=== PATIENT | female | born 1985 | race Caucasian/White ===

== ENCOUNTER → 2019-05-18 | Outpatient (CLI) | payer OTHER ==
[~2019-05-18] MED LIST: ACET500; AMOX500 PO; AZIT250 PO; Acidophilus La100 GM PO; Amiodarone HCl200 MG PO; Amoxicilli250 MG/5 M PO; BISA10S PR; CEPH500 PO; COLCHICINE0.6 MG PO; COMPAZINE10 MG PO; DIPATR PO; DOCU100 PO; FAMO20 PO; FURO20 PO; FURO40 PO; GABA100 PO; HYDACE5 PO; HYDCOR10 PO; HYDR1TAB94 PO; IBUP200 PO; IBUP800; IBUPROFEN; INSDET100 SC; Imitrex25 MG PO; K-Dur 20 meq T20 MEQ PO; LISI5 PO; LORA1 PO; LORA10 PO; MAGOXI400 PO; MEDR150I; METO25ER PO; METO5A PO; MIRT15 PO; MULVITMINE PO; MUPI2TC TOP; NEOPOLHCSU OT; NITR100CA PO; ONDA4ODT PO; OXYACE5T PO; PCN; PENVK250 PO; PROACE100 PO; PROC10 PO; PROM25 PO; RXNEOPOLHC AD; RXPENVK250 PO; SERT100 PO; SERT25 PO; SULTRIDS PO; SUMA25 PO; TOLT2ER; TOPI100 PO; TOPI50 PO; TRAM50 PO; TROSPIUM CHLORI60 MG PO; Toviaz4 MG PO; ZOHYDRO ER10 M1 PO; Zofran Odt4 MG PO; Zofran8 MG PO; [UNRECOGNIZED DRUG - OTHER]
[2019-05-18 07:15] LABS: Source, Urine Catheter
[2019-05-18 07:20] LABS: Appearance, Urine Hazy (Clear); Bilirubin, Urine Neg (Neg); Blood, Urine 1+ (Neg); Color, Urine Yellow (P-Yellow); Glucose Qualitative, Urine 4+ (Neg); Ketones, Urine Neg (Neg); Leukocyte Esterase, Urine 3+ (Neg); Nitrite, Urine Pos (Neg); Protein, Urine 2+ (Neg); Urobilinogen, Urine NORM (Normal)
[2019-05-18 07:36] LABS: Bacteria Mod /hpf; Red Blood Cells, Urine 0-2 /hpf (0-2); Squamous Epithelial Cells Not Seen /hpf (Few); White Blood Cells, Urine 50-100 /hpf (0-5)
== END | disposition home or self-care (01) ==
LOC: LAB RH 07:13 → EDSTATUS 13:55
DX: N39.0 Urinary tract infection, site not specified (principal)
CPT/HCPCS: 81001; 87077; 87086; 87186

== ENCOUNTER 2019-06-05 12:13 | Emergency (ER) | payer OTHER ==
[~2019-06-05] VITALS: Ht 162.6 cm; Wt 68.0 kg
[~2019-06-05 12:13] MED LIST changes: -Amoxicilli250 MG/5 M PO
[2019-06-05 15:15] LABS: Calcium, Ionized (POC) 1.05 mmol/L (1.10-1.46); Chloride (POC) 105 mmol/L (98-108); Creatinine (POC) <0.2 mg/dL (0.6-1.0); Glucose (ISTAT POC) 142 mg/dL (70-99); Hemoglobin (POC) 9.5 g/dL (12.0-16.0); Sodium (POC) 142 mmol/L (135-148); Total CO2 (POC) 25 mmol/L (21-32)
[2019-06-05 15:16] LABS: Source, Urine Catheter
--- NOTE | 2019-06-05 15:23 | NUR ---
Initial Visit: ED Palliative Care Consult for Goals of Care. Spoke with Dr Oliveira and discussed case. Pt reportedly revoked hospice and wanted to come to the hospital. Pt is resting on gurney upon arrival. She C/O pain all over. Speech is difficult to understand but eventually was able to establish her goals of care. Pt reports that she wants to be on hospice just does not want to live at [facility]. She reports that she wants to live in a facility in [place] where she is closer to family. After discussing concerns with Caremanager Aniket, Aniket reports she will place call with Pt's APD worker of Pt's wishes in order to start process. Pt is agreeable with going back to [facility] with [facility] with goal to eventually transfer to a facility in [place]. Called and spoke with Pt's grandfather Jean Carlos and discussed concerns. Jean Carlos reports Joycelyn (Pt) becomes frustrated with her facility nurse when morphine is offered. Pt does not care for how morphine makes her feel and prefers dilaudid. Called and spoke with Shanon from [facility]. Shanon reports Pt had a panic attack and decided to revoke hospice. Shanon reports [facility] can admit Pt back onto services as early as today or tomorrow at the latest. Expressed Pt's concern regarding morphine. Shanon reports Pt has a new prescription for dilaudid available for her now. Called and spoke with facility nurse Briana and reported plan for Pt to discharge from ED back to [facility] with [facility]. Reported Pt's concerns regarding morphine. Listened as Briana expressed concerns for when Pt develops difficulty swallowing and the use of dilaudid vs liquid morphine. Suggested that the dilaudid can be crushed and mixed with a few drops of water to aid in swallow. No other concerns reported at this time. Spoke with Dr Oliveira and discussed Pt's wishes. Plan for Pt to discharge back to [facility] with [facility]. Spoke with bedside nurse Thao and discussed plan. Palliative Care will remain available.
[2019-06-05 15:24] LABS: Blood, Urine 2+ (Neg); Glucose Qualitative, Urine Neg (Neg); Ketones, Urine 4+ (Neg); Leukocyte Esterase, Urine 3+ (Neg); Nitrite, Urine Neg (Neg); Protein, Urine 2+ (Neg); Urobilinogen, Urine 2+ (Normal)
[2019-06-05 15:26] LABS: Bilirubin, Urine 1+ (Neg)
[2019-06-05 15:27] LABS: Appearance, Urine Cloudy (Clear); Color, Urine Yellow (P-Yellow)
[2019-06-05 15:35] LABS: White Blood Cells, Urine 25-50 /hpf (0-5)
[2019-06-05 15:36] LABS: Bacteria Many /hpf; Mucus Mod (0-Heavy); Squamous Epithelial Cells Few /hpf (Few); Triple Phosphate Crystals Rare /hpf
[2019-06-05] MEDS ORDERED: Amoxicilli250 MG/5 M PO (16:11)
== END 2019-06-05 17:37 | disposition home or self-care (01) ==
LOC: ER 12:13
PROVIDERS: Emergency Medicine
DX: N39.0 Urinary tract infection, site not specified (principal); G11.1 Early-onset cerebellar ataxia; E87.6 Hypokalemia; I50.9 Heart failure, unspecified; G47.30 Sleep apnea, unspecified; Z88.8 Allergy status to other drugs, medicaments and biological substances; Z91.018 Allergy to other foods; Z79.899 Other long term (current) drug therapy; Z79.4 Long term (current) use of insulin
CPT/HCPCS: 36415; 51701; 71045; 80047; 81001; 85014; 87077; 87086; 87186; 99285-25

== ENCOUNTER 2019-08-21 16:30 | Emergency (ER) | payer OTHER ==
[~2019-08-21] VITALS: Ht 165.1 cm; Wt 65.8 kg
[~2019-08-21 16:30] MED LIST changes: +Amoxicilli250 MG/5 M PO; +Mirtazapine7.5 MG PO
[2019-08-21] MEDS ORDERED: FLUC100 PO (17:15)
[2019-08-21] MEDS ORDERED: ESCI20 PO (17:15)
[2019-08-21] MEDS ORDERED: OMEPRAZOLE MAGN20 M1 PO (17:18)
[2019-08-21] MEDS ORDERED: HYDMOR8 PO (17:19)
== END 2019-08-21 21:25 | disposition home or self-care (01) ==
LOC: ER 16:30
DX: G71.00 Muscular dystrophy, unspecified (principal); E86.0 Dehydration; I50.9 Heart failure, unspecified; M41.9 Scoliosis, unspecified; G47.30 Sleep apnea, unspecified; Z88.6 Allergy status to analgesic agent; Z91.018 Allergy to other foods; Z88.8 Allergy status to other drugs, medicaments and biological substances; Z79.899 Other long term (current) drug therapy
CPT/HCPCS: 96361; 96374; 99283-25; J1170; J7030

== ENCOUNTER 2019-08-24 22:12 | Observation (INO) | payer OTHER ==
[~2019-08-24] VITALS: Ht 170.2 cm; Wt 53.4 kg
[~2019-08-24 22:12] MED LIST changes: +ESCI20 PO; +FLUC100 PO; +HYDMOR8 PO; +OMEPRAZOLE MAGN20 M1 PO
[2019-08-24 22:55] LABS: BASOPHILS ABSOLUTE AUTO 0.03 K/mm3 (0.00-0.23); BASOPHILS PERCENT AUTO 1 % (0-2); EOSINOPHILS ABSOLUTE AUTO 0.07 K/mm3 (0.00-0.68); EOSINOPHILS PERCENT AUTO 1 % (0-6); Hemoglobin 13.7 g/dL (11.5-16.0); IMMATURE GRAN ABSOLUTE AUTO 0.03 K/mm3 (0.00-0.10); IMMATURE GRAN PERCENT AUTO 1 % (0-1); LYMPHOCYTES PERCENT AUTO 33 % (21-46); MONOCYTES ABSOLUTE AUTO 0.44 K/mm3 (0.16-1.47); MONOCYTES PERCENT AUTO 7 % (4-13); Mean Corpuscular HGB 26.9 pg (26.0-34.0); Mean Corpuscular HGB Conc 31.9 g/dL (31.5-36.5); Mean Corpuscular Volume 84 fL (80-100); Mean Platelet Volume 10.9 fL (9.1-12.4); NEUTROPHILS ABSOLUTE AUTO 3.74 K/mm3 (1.96-9.15); NEUTROPHILS PERCENT AUTO 58 % (41-73); Platelet Count 212 K/mm3 (150-400); RDW Coefficient Variation 15.9 % (11.7-14.2); RDW Standard Deviation 49.3 fL (35.1-46.3); White Blood Cell Count 6.41 K/mm3 (4.00-11.30)
[2019-08-24 23:14] LABS: Alanine Aminotransfer (ALT/SGP 10 U/L (12-78); Albumin, Blood 3.6 g/dL (3.4-5.0); Albumin/Globulin Ratio 0.8 (0.8-1.8); Alk Phos 76 U/L (50-136); Anion Gap 14 mmol/L (6-16); Aspartate Aminotrans (AST/SGOT 12 U/L (12-37); Bilirubin, Total 0.6 mg/dL (0.1-1.0); Blood Urea Nitrogen 6 mg/dL (8-24); Bun/Creatinine Ratio 24.8 (12.0-20.0); CO2, Blood 21 mmol/L (21-32); Calcium, Blood 9.3 mg/dL (8.5-10.1); Chloride, Blood 105 mmol/L (98-108); Creatinine, Blood 0.24 mg/dL (0.40-1.00); Globulin, Blood 4.4 g/dL (2.2-4.0); Glomerular Filtration Rate >60 (60-); Glucose, Blood 187 mg/dL (70-99); Sodium, Blood 140 mmol/L (136-145)
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
[2019-08-25] MEDS ORDERED: Pedi-Dri 100,0060 GM TOP (04:38)
[2019-08-25] MEDS ORDERED: FLUC100 PO (04:39)
[2019-08-25] MEDS ORDERED: Fleet Enema132 ML PR (04:40)
[2019-08-25] MEDS ORDERED: GABA300 PO ×2 (04:41)
[2019-08-25] MEDS ORDERED: MIRALAX17 GM PO (04:41)
[2019-08-25] MEDS ORDERED: SENN187 PO (04:43)
[2019-08-25] MEDS ORDERED: ACET325 PR (04:44)
[2019-08-25] MEDS ORDERED: Fiorinal Capsu1 EACH PO (04:45)
[2019-08-25] MEDS ORDERED: BISA10S PR (04:46)
[2019-08-25] MEDS ORDERED: DURAGESIC1 EACH TD (04:47)
[2019-08-25] MEDS ORDERED: Fentanyl1 EACH TOP (04:48)
[2019-08-25] MEDS ORDERED: HYOS.125 PO (04:49)
[2019-08-25] MEDS ORDERED: LORA2L PO (04:51)
[2019-08-25] MEDS ORDERED: MORP20L PO (04:55)
[2019-08-25] MEDS ORDERED: ONDA4ODT MM (04:56)
[2019-08-25] MEDS ORDERED: PROM25S PR (04:57)
--- NOTE | 2019-08-25 05:54 | NUR ---
PT RESTING QUIETLY AFTER RECEIVING MEDS PER EMAR. PT REFUSES ORAL MEDS. SAYS SHE CANT DRINK. SHE CHOKES. ASSESSMENTS COMPLETED. BED LOW AND LOCKED AND SOFT-TOUCH BUTTON PLACED WITH PATIENT
--- NOTE | 2019-08-25 07:15 | NUR ---
ASSUMED CARE OF PT- BEDSIDE REPORT COMPLETED WITH NIGHT RN WAYNE. PER REPORT FROM WAYNE AND THE PT SHE IS UNABLE TO SWALLOW WATER SO SHE CAN NOT TAKE ANY ORAL MEDICATIONS. PER REPORT PT NPO PENDING SWALLOW EVAL. WILL SPEAK TO PALLIATIVE CARE TODAY. PT SLEEPING AT CHANGE OF SHIFT. PT MEDICATED FOR PAIN AND ANXIETY BY THE NIGHT RN. NO CURRENT S&S OF PAIN. WILL CTM.
[2019-08-25 08:46] LABS: Anion Gap 12 mmol/L (6-16); Blood Urea Nitrogen 6 mg/dL (8-24); Bun/Creatinine Ratio 24.6 (12.0-20.0); CO2, Blood 23 mmol/L (21-32); Calcium, Blood 9.6 mg/dL (8.5-10.1); Chloride, Blood 107 mmol/L (98-108); Creatinine, Blood 0.24 mg/dL (0.40-1.00); Glomerular Filtration Rate >60 (60-); Glucose, Blood 152 mg/dL (70-99); Potassium, Blood 3.3 mmol/L (3.5-5.5); Sodium, Blood 142 mmol/L (136-145)
--- NOTE | 2019-08-25 11:00 | NUR ---
PT GAVE VERBAL PERMISSION FOR STAFF TO SPEAK TO HER GRANDFATHER NAME ADDED TO THE VERBAL RELEASE OF INFORMATION SHEET PER HER REQUEST.
--- NOTE | 2019-08-25 17:41 | NUR ---
Pt known to this sheet writer from past admissions. Review of pt history and needs with care manger. theraputic time with patient and review of her meds. pt has strong anexiety and frustration with communcation. pt neck tight and pt nods yes to have contractions of her arms and muscle tightness. Pt was a halfway in [place] the had a communication tablet for her. pt has great social stress with her family and child. Will have susan see her for theraputic tiem will review pt with Gordon guthrie.
--- NOTE | 2019-08-25 20:03 | NUR ---
SHIFT SUMMARY- PT HAS REQUESTED PAIN MEDICATION T/O THE DAY WHEN STAFF WAKE HER TO SPEAK TO HER, BUT THE PT IS RESTING COMFORTABLY WHEN NURSING STAFF GO TO SPEAK TO HER ABOUT PAIN MEDICINE. PT WAS MEDICATED WHEN SHE WAS AWAKE, FOR PAIN. PT AYAZ OUT AND MOANS BUT WHEN ASKED TO RATE HER PAIN SHE STATES ITS A 2/10. PERFORMED FULL ROM EXERCISES WITH THE PT TWICE DURRING THE SHIFT. MEDICATED FOR PAIN AND ANXIETY PER EMAR. PALLIATIVE CARE CAME TO SEE THE PT AND SPOKE TO RN ABOUT REQUESTING A SWALLOW EVAL FROM THE
--- NOTE | 2019-08-26 02:40 | NUR ---
ASSUMED CARE OF PT *LATE ENTRY* TOOK OVER CARE OF THIS PT @2342, RECIEVED REPORT FROM RADHA Cole RN. PT WAS RESTING COMFORTABLY @TIME I TOOK OVER CARE. AROUND 0100 PT WAS MOANING OUTLOUD & VERY RESTLESS, WHEN ASKED IF IN PAIN SHE NODDED HEAD UP & DOWN FOR YES. NOTICED HER CURRENT IV WAS REMOVED. RAVEN BRODERICK RN PLACED NEW IV IN R. HAND. CALL LIGHT IN REACH. [facility].
--- NOTE | 2019-08-26 06:39 | NUR ---
SHIFT SUMMARY PT IS MOSTLY NONVERBAL, DOES MOAN, GROAN & NOD HEAD TO SOME QUESTIONS. MANY NON-VERBAL SIGNS OF PAIN/DISCOMFORT FLACC SCALE 5 MULTIPLE TIMES & WAS MEDICATED W/DILAUDID & ATIVAN PER ORDERS WHICH DECREASED FLACC SCALE TO 0. HR WAS TACHY THIS AM @144 WHEN AIR POLLUTION COMPLIANCE INSPECTOR TOOK VITALS, GAVE ATIVAN SINCE PT WAS RESTLESS, KICKING LEGS, MOANING & GRIMACING, WHEN HR RECHEKED MANUALLY IT WAS 110 BPM. REPOSITIONED PRN TO PREVENT SKIN BREAKDOWN. ORAL CARE PROVIDED. NPO UNTIL SPEECH EVAL PERFORMED. ON 1L O2 VIA NC. CALL LIGHT IN REACH. WCTM.
--- NOTE | 2019-08-26 16:57 | NUR ---
Inital spiritual care note: Joycelyn was restless. She was impossible to understand verbally. I stood at bedside providing calm presence, stroked her forehead, and spoke soothing words of love and encouragement. This appeared to calm her considerably. Her eyes closed and she rested. I will remain available.
--- NOTE | 2019-08-26 18:46 | NUR ---
PT SLEPT T/O THE SHIFT WITH SHORT PERIODS OF WAKEFULNESS, MEDICATED FOR PAIN PER EMAR WITH IV DILAUDID THIS MORNING. SL ROXINAL THIS AFTERNOON. DISCHARGE ORDERS FOR RETURN TO SNF, HELD, SEE AGRICULTURAL PRODUCE PACKER NOTE. PT CODE STATUS CHANGED TO COMFORT CARE THIS AFTERNOON. SEE CHART FOR ORDERS. DISCHARGE TO BE REEVALUATED IN THE AM. WILL CONTINUE TO MONITOR AND REPORT TO ONCOMING RN
--- NOTE | 2019-08-26 23:42 | NUR ---
COMFORT CARE PT MOANING, TEARFUL, GRIMACING. NODS HEAD "YES" WHEN ASKED IN PAIN. MEDICATED W/ROXANOL PER ORDERS. MUBBLES "HOT" REMOVED BLANKETS. WCTM. CALL LIGHT IN REACH.
--- NOTE | 2019-08-27 01:33 | NUR ---
COMFORT CARE PT MOANING, TEARFUL. NODS HEAD "YES" WHEN ASKED IF UNCOMFORTABLE. REPOSITIONED, CHANGED ATTENDS, SUCTION PROVIDED W/ORAL CARE, CLEANED HAIR. STATES "WANNA " & STARTS CRYING, ATIVAN GIVEN PER ORDERS. WCTM. CALL LIGHT IN REACH.
--- NOTE | 2019-08-27 02:15 | NUR ---
COMFORT CARE SUMMARY ASSUMED CARE OF PT AT 1900. PT IS LYING IN BED. OPENS EYES TO VERBAL STIMULUS, MOANS, PT CAN STATE ONE WORD SENTENCES AT TIMES. PT MEDICATED FOR PAIN PER EMAR.
--- NOTE | 2019-08-27 05:22 | NUR ---
COMFORT CARE ASSESSMENT PT IS CURRENTY SLEEPING.RESPIRATIONS STABLE.
--- NOTE | 2019-08-27 05:23 | NUR ---
COMFORT CARE ASSESSMENT PT IS MOANING AND CRYING, PT MEDICATED PER EMAR, PT STATED EARLIER THAT SHE WISHED THAT SHE COULD . PT REFUSED MORNING MEDICATIONS.
--- NOTE | 2019-08-27 06:11 | NUR ---
END SHIFT SUMMARY PT MOANED T/O THE NIGHT. PT WAS MEDICATED WITH DILAUDID AND ROXINAL T/O. PT STATED IN THE NIGHT THAT SHE WANTED TO , CHARGE NURSE NOTIFIED, SPIRITUAL CARE CONSULTED. PT IS CURRENTLY SLEEPING, CALL LIGHT IN REACH, BED IN LOWEST POSTION, WILL CONTINUE TO MONITOR UNTIL DAYSHIFT NURSE ARRIVES.
--- NOTE | 2019-08-27 13:42 | NUR ---
DOCTOR NOTIFIED PT HAS N&V, EMSIS X2. CALLED DR LAURENT AND RECIEVED NEW ORDER FOR IV ZOFRAN Q4HRS AND PHENERGAN 25MG RECTAL PRN.
--- NOTE | 2019-08-27 14:48 | NUR ---
PT MEDICATED PT MEDICATED FOR NAUSEA, EMSIS x1 AFTER SPEECH PATHOLOGY GAVE FLUIDS. BED BATH PERFORMED AND LINEN CHANGED, ORAL CARE PERFOEMED. METHALEX APPLIED PREVENTATIVE. REPOSITIONED ON LEFT SIDE.
--- NOTE | 2019-08-27 14:53 | NUR ---
PROVIDER UPDATE DR. LAURENT UPDATED ABOUT EMSIS x2. NEW ORDERS OR ZOFARN Q4PRN AND RECTAL PHERGAN 25MG [id number]. LINEN CHANGED AND BED BATH PERFORMED.
--- NOTE | 2019-08-27 15:02 | NUR ---
MEDICATED MEDICATED WITH RECTAL PHENERGAN FOR NAUSEA, REPOSITONED TO RIGHT SIDE. ATTENDS CHANGED.
--- NOTE | 2019-08-27 16:01 | NUR ---
Review of pt with complex care nurse and bedside staff and medications that work for patient. pt has complex social situation. review of possible hospice locations. pt more frail having more contartctures at times less verbal.
--- NOTE | 2019-08-27 17:17 | NUR ---
SHIFT SUMMARY PT HAS HAD NO ACUTE CHANGES THIS SHIFT. PT HAS BEEN VERY VERBAL THIS SHIFT CRYING OUT. PT HAS HAS EMSIS X2 AND MEDICATED. PT HAS BEEN MEDICATED X3 FOR PAIN. PT HAS TOLORATED MINIMAL ORAL FLUIDS THIS SHIFT. PT HAS A METHALEX BANDAGE ON COCCYX A PREVENTATIVE. PT HAS SOFT TOUCH CALL LIGHT WITH IN REACH AND DOOR AND PRIVACY CURTIAN OPEN FOR SAFETY. DELANO LEZAMA STAFF CAME TO VISIT PT ABOUT HER RETURN TO FACILITY AND SHE SHOOK HER HEAD NO. WILL COUNTINUE TO MONITOR AND REPORT TO ONCOMING NOC RN.
--- NOTE | 2019-08-27 18:12 | NUR ---
Routine spiritual care note: Joycelyn was tearful/moaning. She stared at me when I asked her about telling RN she wanted to . Maybe a bit confused today? She was trying to say something and became tearful/frustrated when I could not understand. I calmly assured her that she was safe and cared for here. I asked her about her dtr--did she want me to contact her? She shook head 'no'. But it was unclear to me she really understood anything I said to her. Her answers were inconsistent. The only thing that appeared to calm her was stroking her forehead. With this, she would close her eyes and appear to relax. I will continue to see Joycelyn as case-load permits.
--- NOTE | 2019-08-28 05:16 | NUR ---
SHIFT SUMMARY: ALERT AND RESPONSIVE. PAINFUL AND NAUSEAUS WHILE AWAKE. PT BEGAN DRY HEAVING WITH MOVEMENT PRIOR TO ADMINISTRATION OF ZOFRAN. HAS SLEPT HEAVILY THROUGH MUCH OF THE NIGHT EXCEPT TURNS AND CHANGES. LIGHT TOUCH CALL BUTTON IN PLACE. PT HAS NOT USED IT HOWEVER. PT'S SPEECH IS DIFFICULT TO UNDERSTAND. STAFF ATTEMPT TO ANTICIPATE NEEDS AND COMPLETE FREQUENT CHECKS. NO ACUTE CHANGES OVER NIGHT.
--- NOTE | 2019-08-28 10:05 | NUR ---
PT RESTING QUIETLY
--- NOTE | 2019-08-28 10:07 | NUR ---
INSPECTOR OPEN DIE HERE ASKING PT, WHERE SHE WANTED TO BE PLACED, UNABLE TO UNDERSTAND PT CLEARLY.
--- NOTE | 2019-08-28 13:02 | NUR ---
PT RESTING QUIETLY
--- NOTE | 2019-08-28 13:03 | NUR ---
PT REFUSING CARE STATING "LEAVE ME ALONE", MEDICATED FOR PAIN, REPOSITIONED, ATTENDS CHANGED.
--- NOTE | 2019-08-28 13:05 | NUR ---
PT RESTING QUIETLY
--- NOTE | 2019-08-28 18:49 | NUR ---
LINDA CARE PERFORMED, REPOSITIONED AND ORAL CARE PERFORMED.
--- NOTE | 2019-08-28 19:15 | NUR ---
review of pt with [facility] staff and care coordinators. revew of patient needs.
--- NOTE | 2019-08-28 19:18 | NUR ---
SHIFT SUMMARY PT HAS NO THIS SHIFT, PT WAS MEDICATED X1 FOR PAIN DURING THE SHIFT. PT HAS YELLD OUT MULITPLE TIMES THIS SHIFT "LEAVE ME ALONE", REFUSED OTHER MEDS AND ORAL FLUIDS. TALKED WITH GRANDPA AND HE WILL BE IN [place]OM[place] FROM [place]. SOFT TOUCH CALL LIGHT WITH IN REACH, WILL COUNTINUE TO MONITOR THE REMAINDER THE SHIFT.
--- NOTE | 2019-08-28 22:36 | NUR ---
BEGINNING SHIFT SUMMARY ASSUMED CARE OF PT AT 2137. PT A/O X4, AND IS A GOOD HISTORIAN. PT STATES SHE DOES NOT TAKE ANY MEDICATIONS AT HOME. PT IS FROM [place] AND RECENTLY MOVED TO [place] TO BE WITH HER SISTER, THE PT WENT BACK TO [place] TO MEET HER OTHER SISTER AT THE HOSPITAL THERE WHEN SHE FELL DUE TO LEFT SIDED WEAKNESS, PT STATED THAT SHE HAS HAD A CVA IN THE PAST BUT CANT REMEBER WHEN, THE PT DID NOT WANT TO STAY AT THE HOSPITAL THAT HER SISTER WAS IN SO SHE CAME TO [place], WHERE HER SISTER USED TO LIVE TO COME TO [facility], THE PT PLANS TO LEAVE BACK TO [place] AFTER DISCHARGE. PT HAS LEFT SIDED WEAKNESS, AND NUMBNESS IN HER L THUMB AND POINTER FINGER. PT TRANSFERS WITH SBA. HEART SOUNDS REGULAR, FINE CRACKLES AT THE BASES OF LUNGS. PT DENIES SOB/CP/DYSPNEA. PT IS CURRENTLY SLEEPING, CALL LIGHT IN REACH, BED IN LOWEST POSTION, WILL CONTINUE TO MONITOR.
--- NOTE | 2019-08-28 22:56 | NUR ---
BEGINNING SHIFT SUMMARY ASSUMED CARE OF PT A 1899. PT WAS LYING IN BED LOOKING OUT THE WINDOW. PT STATED THAT SHE WANTED ME TO LEAVE HER ALONE. PT DENIES PAIN AND REFUSED ALL MEDICATIONS BY MOUTH. PT HAS BEEN SLEEPING UNTIL 2229 WHEN SHE ASKED FOR SOME SODA, PT IS UPSET ABOUT HAVING TO DRINK THICKEND SODA. PT IS REFUSING ORAL CARE AFTER DRINKING SODA AND IS CRYING OUT, WHEN ASKED IF PT NEEDED SOMETHING FOR PAIN THE PT REFUSES. CALL LIGHT IN REACH, BED IN LOWEST POSTION, WILL CONTINUE TO MONITOR.
--- NOTE | 2019-08-28 23:51 | NUR ---
COMFORT CARE ASSESSMENT PT STATED THAT SHE WANTED TO BE LEFT ALONE.
--- NOTE | 2019-08-28 23:52 | NUR ---
COMFORT CARE ASSESSMENT PT IS AGITATED BUT REFUSING ALL MEDICATIONS AND CARE. PT REPOSTIONED AND ATTENDS CHECKED.
--- NOTE | 2019-08-28 23:54 | NUR ---
COMFORT CARE ASSESSMENT PT STATED TO LINEN ROOM ATTENDANT THAT SHE IS IN PAIN, WHEN ABOUT TO GIVE ROXINOL PT STATED THAT SHE DIDNT WANT IT AND SHE WANTED DILAUDID IN HER ARM. EXPLAINED TO PT THAT WHEN SHE LEAVES SHE WONT HAVE AN IV AND SHE CANT GET THAT DRUG. PT STILL REFUSED PAIN MEDICATION. PT ASKED TO BE LEFT ALONE.
--- NOTE | 2019-08-29 01:39 | NUR ---
COMFORT CARE ASSESSMENT PT CONTNIUES TO MOAN. WHEN ASKED IF PT WILL TAKE ROXINOL FOR PAIN, PT REFUSES, PT REPOSITIONED AND ATTENDS CHANGED. CALL LIGHT IN REACH, BED IN LOWEST POSITION, WILL CONTINUE TO MONITOR.
--- NOTE | 2019-08-29 04:24 | NUR ---
COMFORT CARE ASSESSMENT WENT TO CHECK ON PT, PT HAD VOMITED ON SELF. BED CHANGED, PT GIVEN SPONGE BATH, ORAL CARE AND LINDA CARE. PT TOOK PAIN MEDICATION. PT ASKING FOR COLD WATER, PT IS NOT SATICFIED WITH PUDDING THICK WATER. PT IS CURRENTLY RESTING, CALL LIGHT IN REACH, BED IN LOWEST POSTION, WILL CONTINUE TO MONITOR.
--- NOTE | 2019-08-29 04:34 | NUR ---
END SHIFT SUMMARY PT CONTINUED TO CALL OUT T/O THE NIGHT. PT THREW UP ONCE, BED CHANGED AND SPONGE BATH GIVEN. PT AGREED TO PAIN MEDICATION. PT WANTS TO DRINK COLD WATER, PT EDUCATED ABOUT WHY SHE CAN'T AND IS UPSET. HEAD OF THE BED ELEVATED, CALL LIGHT IN REACH, BED IN LOWEST POSITION, WILL CONTINUE TO MONITOR UNTIL DAYSHIFT NURSE ARRIVES.
--- NOTE | 2019-08-29 05:40 | NUR ---
COMFORT CARE ASSESSMENT PT CALLED OUT BECAUSE SHE WANTED HER HEAD LOWERED, PT STATED THAT SHE WAS IN 10/10 PAIN [address] IN HER BODY. MEDICATED PER EMAR AND REPOSITIONED. CALL LIGHT IN REACH, BED IN LOWEST POSTION, WILL CONTNIUE TO MONITOR.
--- NOTE | 2019-08-29 09:03 | NUR ---
PATIENT SLEEPING W/O S/SX DISCOMFORT AT THIS TIME. WILL DO PERSONAL CARE WHEN AWAKE.
--- NOTE | 2019-08-29 10:10 | NUR ---
PATIENT STATES SHE HURTS 'EVERYWHERE.' REFUSED ROXANOL DESPITE MUCH DISCUSSION WITH THIS RN. PATIENT ASKING FOR 'DILAUDID.' RECORDINGS LIBRARIAN NOTIFIED.
--- NOTE | 2019-08-29 12:06 | NUR ---
PATIENT SLEEPING AT THIS TIME W/O S/SX OF DISCOMFORT.
--- NOTE | 2019-08-29 13:00 | NUR ---
Requested by Aniket SHAH RN to be present with meeting between CM and pt's grandfather, Jean Carlos. Aniket and Jean Carlos were meeting in hallway outside of pt's room when this casualty underwriter arrived. Jean Carlos stated to Aniket that he has been in contact with [facility] in the [place] (where pt has been a resident of in the past) and that they may have a bed available for Joycelyn. Jean Carlos also reports that he recently signed papers at hospice that he thought were for him to be able to make medical decisions for Joycelyn. Aniket states she will contact [facility] to check on the status of any paperwork they may have. Jean Carlos also states that Joycelyn doesn't like to take the morphine as "It makes her fuzzy and she usually refuses it." Jean Carlos states Joycelyn was taking dilaudid and a fentanyl patch at [facility] which was working for her pain. Reviewed MAR from [facility] and pt was taking dilaudid 8 mg PO q4h prn pain and fentanyl patch 125 mcg q [address]. [address] Luis re: pain medications that pt was taking while on hospice at [facility] to see if those should be ordered while she is on comfort care here. PC to follow for symptom management.
--- NOTE | 2019-08-29 17:33 | NUR ---
SHIFT SUMMARY NO ACUTE CHANGES TODAY. SHE HAD A FEW EPISODES OF EMESIS REQUIRING A BATH AND FULL BED CHANGE. MEDICATED WITH ZOFRAN. SHE COMPLAINED OF PAIN ALL OVER WHEN I ASSUMED CARE OF PATIENT BUT HAD BEEM REFUSING ALL PAIN MEDS PREVIOUSLY ORDERED. PAIN MEDS CHANGED TO ORAL DILAUDID PER PT REQUEST AND HER FENTANYL PATCH DOSE INCREASED TO HER DOSE SHE WAS ON AT [facility], 125 MCG. SHE HAS BEEN SLEEPING AND RESTING COMFORTABLE SINCE ABOUT 1600. NO FURTHER EPISODES OF N/V AND NO C/O PAIN AT THIS TIME. ETHICS CONSULT ORDERED AND SS WORKING ON SAFE DISCHARGE PLANNING AND PLACEMENT.
--- NOTE | 2019-08-30 01:33 | NUR ---
COMFORT CARE PATIENT RESTING. NO S/SX OF PAIN. FENTANYL PATCH [address] CHANGED AND REPOSITIONED FOR COMFORT. WILL CONTINUE TO MONITOR.
--- NOTE | 2019-08-30 05:00 | NUR ---
SHIFT SUMMARY COMFORT CARE PATIENT HAD NO ACUTE CHANGES. NO S/SX OF PAIN, N/V OR SOB. FENTANYL PATCH [address] SLEEP/RESTING MOST OF THE SHIFT. TURNED AND CHANGED T/O SHIFT. ORAL CARE PROVIDED. PATIENT SPEECH DIFFICULT TO UNDERSTAND, MOANING. HX MS. TOUCH PAD CALL LIGHT IN REACH. BED IN LOWEST POSITION. WILL CONTINUE TO MONITOR UNTIL DAY SHIFT NURSE ASSUMES CARE.
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
--- NOTE | 2019-08-30 18:19 | NUR ---
SHIFT SUMMARY PT RESTED QUIETLY MOST OF THE DAY. DID NOT MOAN IN PAIN TODAY OR VERBALIZE ANY PAIN. PT DID MAKE NOISE A COUPLE OF TIMES WHEN SHE WANTED SOMETHING TO DRINK; SOMETIMES "APPLE JUICE", OTHER TIMES "SODA". PT GIVEN THICKENED LIQUIDS THRU OUT THE DAY. DID NOT EAT MUCH OF ANYTHING; TOOK AT LEAST ONE BITE OF EVERYTHING FOR BREAKFAST AND LUNCH. ABSOLUTELY REFUSED DINNER. INCONTINENT OF URINE SEVERAL TIMES, SEE CHART. PT'S GRANDPA CALLED TO K ON HER. GRANDPA DID REPORT THAT PT IS "VERY PICKY" ABOUT EATING. DIME SIZE BOIL/ABSCESS ON L LABIA; PICTURE IN CHART. PT REPOSITIONED THRU OUT THE DAY. NO C/O. PT ON C/C WAITING FOR PLACEMENT TO RETURN ON HOSPICE. TOUCH CALL LT IN REACH.
--- NOTE | 2019-08-31 00:09 | NUR ---
COMFORT CARE SLEEPING. NO SIGN OF PAIN, SOB, AND N/V. WILL CONTINUE TO MONITOR.
--- NOTE | 2019-08-31 04:04 | NUR ---
SHIFT SUMMARY PATIENT ON COMFORT CARE HAD NO ACUTE CHANGES. BEDREST WITH Q2 TURNS AND REPOSITIONING. PIV REMAINS INTACT. NO S/SX OF PAIN, SOB, AND N/V. ABLE TO SLEEP/REST MOST OF THE SHIFT WITH MINIMAL MOANING. TOUCH PAD IN REACH. BED IN LOWEST POSITION. WILL CONTINUE TO MONITOR UNTIL DAY SHIFT NURSE ASSUMES CARE.
--- NOTE | 2019-08-31 14:53 | NUR ---
SHIFT SUMMARY NO ACUTE CHANGES TO PRESENT THIS SHIFT. PT AWAKE THIS AM, BUT REFUSED BREAKFAST AND LUNCH. FLOAT MOBILE PHONE SALESPERSON ATTEMPTED TO FEED PT AND TRY BITES OF EVERYTHING, BUT PT CLOSED HER MOUTH AND TURNED HER HEAD. SM AMT OF THICKENED SPRITE GIVEN PER REQUEST. BED BATH GIVEN AND HAIR WASHED. NO C/O PAIN OR MOANING AT ALL TO PRESENT. TOUCH CALL LT IN REACH. PT RESTING QUIETLY SINCE BED BATH GIVEN.
--- NOTE | 2019-09-01 05:16 | NUR ---
PATHOLOGIST ASSISTANT SUMMARY NO ACUTE CHANGES. PT REMAINS ON COMFORT CARE. MINIMALLY VERBAL, CAN ANSWER SOME YES/NO QUESTIONS. PT REFUSES PO INTAKE ASIDE FROM THICKENED SODA. WILL NOT TAKE PILLS. PT MOANS OUT AT TIMES BUT DENIES PAIN. PT DOES SEEM MORE COMFORTABLE AFTER REPOSITIONING. REPOSITIONED PT Q2H WITH FREQUENT ATTENDS CHANGES. WILL CONTINUE TO MONITOR.
--- NOTE | 2019-09-01 09:15 | NUR ---
SHE SHAKES HER HEAD NO TO PAIN. LIGHT ORAL CARE DONE WITH SPONGE AND A WASH CLOTH. CRUSHED MEDS GIVEN IN THICKENED FAUSTO MIST. BREAKFAST OFFERED BUT AFTER SMALL TASTES SHE REFUSED. POSITION CHANGED. WILL STRIVE FOR CONTINUED COMFORT.
--- NOTE | 2019-09-01 10:15 | NUR ---
SHE IS RESTING COMFORTABLY. LAST CHANGED AT 0850.
--- NOTE | 2019-09-01 12:19 | NUR ---
RESTING QUIETLY. EYES ARE OPEN BUT SHE IS NOT VERY ALERT. SHE LOOKS COMFORTABLE. ATTENDS CHANGED X2 TODAY BUT FOR SMALL AMT OF URINE.
--- NOTE | 2019-09-01 13:04 | NUR ---
I LOOKED AT HER [facility] MEDICATION RECORD AND SAW THAT THEY WERE GIVING HER THE PO DILAUDID 1 OR 2 TIMES A DAY. WE HAVE NOT GIVEN ANYIN THE PAST WEEK. I GAVE HER A DOSE ,THINKING HER BODY MAY NEED IT OR BE FEELING WORSE WITHOUT IT. SHE MOANS INTERMITTENTLY BUT I DON'T KNOW WHAT IT MEANS.
--- NOTE | 2019-09-01 14:40 | NUR ---
SHE HAS BEEN GIVEN PO DILAUDID. SHE IS ASLEEP. RESPIRATIONS REGULAR AT 16/MIN. SHE REMAINS ON 1L O2. VS NOT CHECKED TODAY D/T COMFORT CARE STATUS. NO CHANGES.
--- NOTE | 2019-09-01 14:44 | NUR ---
TURNED TO HER R SIDE. ATTENDS CHANGED FOR SMALL AMT OF URINE. MOSTLY SLEEPING.
--- NOTE | 2019-09-01 16:15 | NUR ---
Routine spiritual care note: Joycelyn was not responsive to voice. Eyes open and staring upward. Breaths shallow, but even. She appears well cared-for by nursing. Prayer provided at bedside. I will remain available.
--- NOTE | 2019-09-01 16:20 | NUR ---
SHE MOSTLY SLEEPS. RESPIRATIONS REGULAR. NO INTERMITTENT MOANING THE PAST FEW HRS. UPHOLSTERY COVERS INSPECTOR STOPPED IN BUT DIDN'T STAY ENEIDA WAS SLEEPING. HER GRANDFATHER ANAID JUST CALLED TO SEE HOW SHE IS DOING AND TO TALK TO THE SLURRY TANK TENDER ABOUT HER. I GAVE HIM THE NUMBER AND JOSELYN THORNTON'S NAME.
--- NOTE | 2019-09-02 04:47 | NUR ---
CHARGE ENTRY CLERK SUMMARY PT REMAINS ON COMFORT CARE. TURNED Q2H AND ATTENDS CHANGED OFTEN PT VOIDS VERY SMALL AMOUNTS AT A TIME. PT SEEMS MORE SOMNOLENT TONIGHT. NOT ABLE TO ANSWER YES/NO QUESTIONS AND HAS SLEPT THE MAJORITY OF THE NIGHT. PT STILL REFUSING PO INTAKE AND BITES DOWN ON SWABS WHEN ORAL CARE IS ATTEMPTED. WILL CONTINUE TO MONITOR.
--- NOTE | 2019-09-02 10:17 | NUR ---
PATIENT SLEEPING DURING ASSESSMENT. ATTEMPTED TO DO ORAL CARE, BUT PATIENT BITES DOWN ON SUCTION AND WON'T ALLOW. WILL PLACE SCOPALAMINE PATCH FOR SECRETION. NO S/S OF PAIN NOTED.
--- NOTE | 2019-09-02 10:18 | NUR ---
PATIENT SLEEPING AT THIS TIME. NO S/S OF PAIN OR DISCOMFORT.
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
--- NOTE | 2019-09-02 11:41 | NUR ---
SCOPALAMINE PATCH PLACED. ATTENDS CHANGED AND PATIENT REPOSITIONED. ORAL CARE COMPLETED. NO S/S OF PAIN. PATIENT NOT REPSONDING TO VERBAL. CALL LIGHT WITHIN REACH.
--- NOTE | 2019-09-02 14:53 | NUR ---
PATIENT SLEEPING AT THIS TIME. NO S/S OF PAIN ASSESSED.
--- NOTE | 2019-09-02 14:55 | NUR ---
ATTENDS CHECKED AND REMAIN DRY. PATIENT REPOSITIONING TO L SIDE. PATIENT DID NOT REPSOND DURING REPOSITIONING. DOES CLENCH JAW SHUT WHEN ATTEMPTING TO DO ORAL CARE, OTHERWISE UNRESPONSIVE. NO S/S OF PAIN OR DISCOMFORT. SCOPALAMINE PATCH IN PLACE BEHIND R EAR.
--- NOTE | 2019-09-02 17:09 | NUR ---
Comfort Care: Pt is not responsive. She has shortness of breath and mottling on her heels, toes, and knees; cool to touch. Call to Dr. Luis for roxanol, reviewed with nurse, Lolita. Call placed to pt's grandfather, to notify of the change in her dying process. Later Entry: Notified by nurse that when she entered the room to administer Roxanol, pt had . Call to pt's grandfather to notify of passing. He is upset. He reports that she had donated her body to science and he did not know specifics of this. He requests Mala to call [facility] to request this information from them, as they had noted her wishes. [facility] to return call to palliative care.
--- NOTE | 2019-09-02 17:16 | NUR ---
PATIENT AT 1700 VERIFIED BY 2 RN'S. MAGDALENE, PALLIATIVE CARE NURSE HAS BEEN IN CONTACT WITH PATIENTS GRANDFATHER AND WILL NOTIFY HIM OF HER . DR. LAURENT NOTIFIED. CHARGE NURSE MABEL TO CONTACT HOSPITAL CLEAN OUT DRILLER HELPER.
--- NOTE | 2019-09-02 18:43 | NUR ---
Joycelyn peacefully @ 1700. I waited for family who arrived 1730. Joycelyn's dtr and baby-daddy arrived. They were tearful and quiet. Dtnieves is quite young and clearly overwhelmed. She responded well to gentle financial counselor about her mom. Assured her Joycelyn was "ready" and held great love for her. Provided a lock of Joycelyn's hair. Offered continued support if needed and provided my contact info.
--- NOTE | 2019-09-02 21:22 | NUR ---
PT around 1700 and Family has seen. Informed by litigation paralegalHALI Graf that [facility] after eyes are harvested. Await procedure, will notify aurelio when this has occured.
--- NOTE | 2019-09-02 23:50 | NUR ---
eye bank rep arrived at 2300 from [place] and says procedure with take up to 2.5 hours. After he is finished PT has donated body to science and [facility] to pick body to be donated. Family aware prearrangement had been filed
--- NOTE | 2019-09-03 01:27 | NUR ---
PT had bilat cornea removed by [facility]. [facility] body 0125 am 09/03/2019
== END 2019-09-02 17:15 ==
LOC: ER 22:12 → MEDS 22:13
PROVIDERS: Internal Medicine; Physician Assistant; ADMIT Internal Medicine
DX: F40.8 Other phobic anxiety disorders (principal); G71.09 Other specified muscular dystrophies; E87.6 Hypokalemia; I50.40 Unspecified combined systolic (congestive) and diastolic (congestive) heart failure; M21.372 Foot drop, left foot; G43.909 Migraine, unspecified, not intractable, without status migrainosus; F32.9 Major depressive disorder, single episode, unspecified; N90.89 Other specified noninflammatory disorders of vulva and perineum; R09.89 Other specified symptoms and signs involving the circulatory and respiratory systems; D68.1 Hereditary factor XI deficiency; M41.9 Scoliosis, unspecified; I42.0 Dilated cardiomyopathy; E44.0 Moderate protein-calorie malnutrition; R62.7 Adult failure to thrive; R64 Cachexia; Z68.1 Body mass index [BMI] 19.9 or less, adult; Z51.5 Encounter for palliative care; Z66 Do not resuscitate; Z88.6 Allergy status to analgesic agent; Z88.8 Allergy status to other drugs, medicaments and biological substances; Z91.018 Allergy to other foods; Z79.899 Other long term (current) drug therapy
CPT/HCPCS: 36415; 71045; 80048; 80053; 85025; 92610; 96361; 96374; 96375; 96376; 99285-25; G0378; J1170; J2060; J2405; J3480; J7042